=== PATIENT | male | born 1950 | race Caucasian/White ===

== ENCOUNTER → 2018-11-10 | Outpatient (CLI) | payer OTHER ==
[~2018-11-10] VITALS: Ht 177.8 cm; Wt 90.3 kg
[~2018-11-10] MED LIST: ASCO500T9 PO; ASPI-1181 PO; ATOR-2 PO; METO25TA6 PO; NITR0.4T50 SL; REGADENOSON 0.4 MG/5 ML PF SYG IVP SCH; TICA90TA PO
== END | disposition home or self-care (01) ==
LOC: SHCH 08:02
PROVIDERS: ATTEND Internal Medicine Cardiovascular Disease
DX: R06.09 Other forms of dyspnea (principal)
CPT/HCPCS: 78452; 93017; 96374; A9500 ×2; J2785

== ENCOUNTER → 2019-05-21 | Outpatient (CLI) | payer MEDICARE, OTHER ==
[~2019-05-21] MED LIST changes: -REGADENOSON 0.4 MG/5 ML PF SYG IVP SCH
== END | disposition home or self-care (01) ==
LOC: SHCH 12:54
PROVIDERS: ATTEND Internal Medicine Cardiovascular Disease
DX: I73.9 Peripheral vascular disease, unspecified (principal); I87.2 Venous insufficiency (chronic) (peripheral); R59.0 Localized enlarged lymph nodes
CPT/HCPCS: 93925; 93970

== ENCOUNTER 2022-03-16 01:03 | Emergency (ER) | payer MEDICARE, OTHER ==
[~2022-03-16] VITALS: Ht 177.8 cm; Wt 90.7 kg
[~2022-03-16 01:03] MED LIST changes: +ASCO500T20 PO; -ASCO500T9 PO; -ASPI-1181 PO; +ASPI-1443 PO
[2022-03-16 01:16] LABS: BASOPHILS % (AUTO) 0.5 % (0.0-5.0); EOSINOPHILS % (AUTO) 3.7 % (0.0-8.0); LYMPHOCYTES % (AUTO) 19.3 % (21.0-51.0); MEAN CORPUSCULAR HEMOGLOBIN 30.3 pg (27.0-33.0); MEAN CORPUSCULAR HGB CONC 33.8 g/dL (32.0-36.0); MEAN CORPUSCULAR VOLUME 89.5 fL (79-99); NEUTROPHILS % (AUTO) 68.1 % (40.0-77.0); PLATELET COUNT (AUTO) 184 K/uL (130-400); RED BLOOD CELL COUNT(AUTO) 5.81 MIL/uL (4.50-6.20)
[2022-03-16 01:26] LABS: CREATININE 1.4 mg/dL (0.5-1.5); POTASSIUM 4.4 mmol/L (3.5-5.1)
[2022-03-16 01:30] LABS: ALBUMIN 4.1 g/dL (3.5-5.0); MAGNESIUM 2.1 mg/dL (1.80-2.40); TOTAL PROTEIN, SERUM 7.9 g/dL (6.0-8.3)
[2022-03-16] MEDS ORDERED: APIX5TAB PO (02:55)
[2022-03-16] MEDS ORDERED: APIXABAN 2.5 MG TABLET PO ONE (02:58)
[2022-03-16 02:59] VITALS: BP 125/71
[2022-03-16] MEDS ORDERED: APIXABAN 5 MG TABLET PO ONE (03:00)
== END 2022-03-16 03:17 | disposition home or self-care (01) ==
LOC: EDH 01:03
DX: I48.0 Paroxysmal atrial fibrillation (principal); Z88.5 Allergy status to narcotic agent; Z88.8 Allergy status to other drugs, medicaments and biological substances; Z95.5 Presence of coronary angioplasty implant and graft; Z79.01 Long term (current) use of anticoagulants; Z79.82 Long term (current) use of aspirin; Z85.828 Personal history of other malignant neoplasm of skin
CPT/HCPCS: 36415; 71045; 80053; 83735; 84484; 85025; 93005